=== PATIENT | female | born 1985 | race Caucasian/White ===

== ENCOUNTER 2016-08-23 04:44 | Inpatient (IN) | payer BC ==
--- NOTE | ~2016-08-23 | HP ---
Unit #: [id number] #: [id number] Patient: SLIME ALCANTARA [id number] [place] [address] [id number] MR#: [id number] NAME: SLIME ALCANTARA ROOM: P181 Age: 31 Sex: F Admission Date: 08/23/2016 : 1985 Attending Physician: Felipe Mckee M.D. Admitting Physician: Felipe Mckee M.D. Primary Care Physician: Karma Galeas M.D. HISTORY AND PHYSICAL HISTORY OF PRESENT ILLNESS Slime is a 31 year old admitted to [facility] with depression and verbalizing wanting to hurt herself. PAST MEDICAL HISTORY 1. History of kidney stones 2. 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 Right shoulder 2. Right Achilles tendon lengthening ALLERGIES Sulfa, azithromycin. SOCIAL HISTORY She denies cigarettes, alcohol and illicit drug use. FAMILY HISTORY Medically noncontributory. REVIEW OF SYSTEMS CONSTITUTIONAL: No fever or chills. HEENT: Denies any sore throat, ear pain or runny nose. CARDIOVASCULAR: Denies chest pain, irregular heart rhythm or palpitations. CHEST: Denies shortness of breath or cough. No hemoptysis. GASTROINTESTINAL: Denies nausea, vomiting, diarrhea or chronic constipation. ENDOCRINE: Denies history of increased thirst or urination. No recent significant weight loss or gain. GENITOURINARY: Denies dysuria, frequency, or hematuria. SKIN: Denies any rashes. HEMATOLOGIC: Denies history of increased bleeding or bruising. MUSCULOSKELETAL: Denies any hot, swollen joints. No generalized muscle pain. EXTREMITIES: She reports significant muscle wasting and right foot drop. NEUROLOGIC: Denies problems with vision or speech. No frequent, severe headaches. No numbness, tingling or weakness in any extremities. Denies loss of bladder or bowel control. Unit #: [id number] #: [id number] Patient: SLIME ALCANTARA CURRENT MEDICATIONS 1. Celexa 20 mg q day 2. Milk of Magnesia p.r.n. 3. Maalox p.r.n. 4. Tylenol p.r.n. PHYSICAL EXAMINATION GENERAL: Alert, well-nourished, in no apparent distress. VITAL SIGNS: Blood pressure 115/80, heart rate 70, respirations 16, temperature 98.6. WEIGHT: 128 pounds. HEIGHT: 5 foot 3 inches. SKIN: Warm and dry without rash or lesion. HEENT: Normocephalic. TMs not viewed. Oral and nasal passages clear. Conjunctivae clear. Pupils equal, round and reactive to light and accommodation. Extraocular movements intact. NECK: Supple without lymphadenopathy or thyromegaly. HEART: Regular rate and rhythm without murmur. LUNGS: Clear. ABDOMEN: Soft, nontender. : Not done. EXTREMITIES: No evidence of cyanosis, clubbing or edema. Moves all extremities without focal deficit except the right lower extremity. She has a foot drop and there is significant muscle wasting in the calf and thigh. NEUROLOGICAL: Grossly within normal limits. Cranial Nerves: II: Visual farfan are intact. III, IV AND : Extraocular movements are intact. Pupils are equal, round and reactive to light. V: Facial sensation is grossly normal. VII: Facial movements and expression are normal. VIII: Auditory acuity grossly intact. IX, X: Uvula is midline. Phonation is normal. XI: Patient shrugs shoulders and turns head normally. XII: Tongue protrudes in the midline. Sensory and Motor Function: Sensory is grossly normal. Motor: moves all extremities well except the right lower extremity where she has a foot drop and significant muscle wasting. Coordination: Gait is affected by the brace that she wears on her ankle and the significant muscle wasting in the leg. Deep Tendon Reflexes: Decrease in the right lower extremity. IMPRESSION Psychiatric admission. RECOMMENDATIONS PSYCHIATRIC: Per psychiatrist. MEDICAL: I see no contraindications to participating in facility's activities. MEDICAL PROGNOSIS Good. MEDICAL CONDITION Stable. Dictated by... Unit #: [id number] #: [id number] Patient: SLIME ALCANTARA Amanda Jin P.A.-C. for Zac Major/esther TD: 08/24/2016 02:17 JOB #: [id number] HISTORY AND PHYSICAL Page 1 of 1 X Amanda Jin X HISTORY AND PHYSICAL
== END 2016-08-24 17:35 | disposition home or self-care (01) | DRG 881 ==
LOC: P1E 04:44
DX: F32.9 Major depressive disorder, single episode, unspecified (principal); R45.851 Suicidal ideations; F41.9 Anxiety disorder, unspecified; M21.379 Foot drop, unspecified foot

== ENCOUNTER → 2016-12-06 | Outpatient (CLI) | payer BC, MEDICARE ==
--- NOTE | ~2016-12-06 | MR187 ---
[facility]. [facility] A Service of [facility] & [facility] RADIOLOGY TEXT RESULTS PATIENT: PAMELA ALCANTARA LOCATION: [facility] : [birth year] UNIT #: [id number] AGE: [address]: LEW ALEXANDER SEX: F ORDER DR: [id number] [address] [address] [id number] MR#: [id number] Acc #: [id number] NAME: PAMELA ALCANTARA : 1985 SEX: F STUDY DATE/TIME: 12/06/2016 11:45 UNIT: [facility] ROOM: STUDY DESCRIPTION: MR Wrist Wo Contrast Lt Attending Physician: Lew Alexander M.D. Referring Physician: Lew Alexander M.D. Ordering Physician: Lew Alexander M.D. Primary Care Physician: Lew Alexander M.D. MRI CENTER REPORT This report is preliminary unless electronic signature is present. EXAM MRI left wrist without contrast, 12/06/2016. COMPARISON No correlative studies. HISTORY Order states chronic wrist pain. History sheet states patient fell about 1 year ago. Persistent left wrist pain especially at gelcap marked area. No improvement. No surgery. Neuropathy. FINDINGS The marker is located along the ulnar aspect of the wrist at the level of the triangular fibrocartilage and ulnar styloid. Radiocarpal alignment is normal. There is no fracture or marrow lesion. There is a tiny amount of fluid in the pisiform recess of the radiocarpal joint space extending into a tiny subcortical cyst of the volar aspect of the hamate compatible with a small intraosseous cyst which is not uncommon and essentially a normal variation. A minimal distal radioulnar joint effusion is noted. There is no triangular fibrocartilage complex tear or pathology identified. There is no radiocarpal and midcarpal effusion. Scapholunate and lunate-triquetral ligaments are intact. There is mild extensor carpi ulnaris tendinosis at the level of the distal ulna. Fifth metacarpal base insertion is maintained. The remainder of the extensor tendons are normal. The neurovascular bundles, carpal tunnel, and flexor tendons are normal. [facility] A Service of [facility] & [facility] RADIOLOGY TEXT RESULTS PATIENT: PAMEL[facility] ALCANTARA [id number] [birth year] UNIT #: [id number] AGE: [address]: LEW ALEXANDER SEX: F ORDER DR: IMPRESSION 1. Extensor carpi ulnaris tendinosis detailed above without a tear. 2. Nonspecific small distal radioulnar joint effusion. 3. The triangular fibrocartilage and the remainder of the exam are within normal limits. Dictated by... Candice Lees M.D. THIS IS AN ELECTRONICALLY VERIFIED REPORT Candice Lees M.D. at 12/07/2016 11:31 AM TMDarnell/fidencio TD: 12/07/2016 10:32 JOB #: [id number] MRI CENTER REPORT Page 1 of 1
== END | disposition home or self-care (01) ==
LOC: SMRI 12-01 13:00
DX: M25.532 Pain in left wrist (principal); M25.422 Effusion, left elbow; M77.9 Enthesopathy, unspecified
CPT/HCPCS: 73221